=== PATIENT | male | born 1965 | race Caucasian/White ===

== ENCOUNTER 2021-04-04 14:56 | Inpatient (IN) | payer OTHER ==
[2021-04-04] MEDS ORDERED: LOPERAMIDE HCL 2 MG CAPSULE PO PRN (21:26)
[2021-04-04] MEDS ORDERED: guaiFENesin 200 MG/10 ML 10 ML UNIT-DOSE CUPS PO PRN (21:26)
[2021-04-04] MEDS ORDERED: ACETAMINOPHEN 325 MG TABLET (FP) PO PRN (21:26)
[2021-04-04] MEDS ORDERED: MAGNESIUM HYDROX 2400MG/30ML ORAL SUSPENSION 30 ML CUP PO PRN (21:26)
[2021-04-04] MEDS ORDERED: IBUPROFEN 400 MG TABLET (FP) PO PRN (21:26)
[2021-04-04] MEDS ORDERED: MAG HYDROX/AL HYDROX/SIMETH 30 ML UNIT-DOSE CUP PO PRN (21:26)
[2021-04-04] MEDS ORDERED: MAGNESIUM CITRATE 300 ML BOTTLE PO PRN (21:26)
[2021-04-04] MEDS ORDERED: P-EPHED 60MG/TRIPROLIDI 2.5MG TABLET PO PRN (21:26)
[2021-04-04] MEDS: THIAMINE HCL 100 MG TABLET (FP) PO SCH (23:00)
[2021-04-04] MEDS: MELATONIN 5 MG TABLETS PO SCH (23:00)
[2021-04-04] MEDS ORDERED: TUBERCULIN PPD 5 TU/0.1ML VIAL ID ONE (23:02)
[2021-04-05] MEDS ORDERED: methaDONE HCL 10 MG TABLET PO SCH (07:45)
[2021-04-05] MEDS ORDERED: methaDONE 40 MG, methaDONE 20 MG PO ONE (08:00)
[2021-04-05] MEDS ORDERED: methaDONE HCL 40 MG DISPERSABLE TABLET ONE (09:41)
[2021-04-05] MEDS ORDERED: methaDONE HCL 10 MG TABLET ONE (09:41)
[2021-04-05] MEDS: PRENATAL VITAMINS W/ FOLIC ACID TABLET (FP) PO SCH (09:43)
[2021-04-05] MEDS ORDERED: PNEUMOC 13-VAL CONJ-DIP CRM/PF 0.5 ML DISP.SYRIN IM ONE (10:00)
[2021-04-05 10:34] LABS: HEMATOCRIT 39.3 % (35.4-49); HEMOGLOBIN 13.5 GM/dL (11.7-16.9); MCHC 34.3 g/dl (32.0-35.9); MEAN CELL VOLUME 90.4 fl (80-96); MEAN PLT VOLUME 7.5 fl (7.5-11.1); PLATELET COUNT 266 10^3/uL (134-434); RBC 4.35 M/mm3 (4.00-5.60); RDW 14.7 % (11.9-15.9); WHITE BLOOD COUNT 9.4 K/mm3 (4.0-10.0)
[2021-04-05 10:46] LABS: ALBUMIN 2.8 g/dl (3.4-5.0); BLOOD UREA NITROGEN 14.3 mg/dL (7-18); CALCIUM 8.7 mg/dL (8.5-10.1)
[2021-04-05 10:49] LABS: BILIRUBIN,TOTAL 0.3 mg/dL (0.2-1); TOT PROT 6.6 g/dl (6.4-8.2)
[2021-04-05 10:50] LABS: CREATININE 0.8 mg/dL (0.55-1.3)
[2021-04-05] MEDS ORDERED: PNEUMOCOCCAL 23 VACCINE 0.5 ML VIAL IM ONE (12:00)
[2021-04-05 12:21] LABS: HIV INTERPRETATION NEGATIVE (NEGATIVE)
[2021-04-05] MEDS: THIAMINE HCL 100 MG TABLET (FP) PO SCH (21:02)
[2021-04-05] MEDS: MELATONIN 5 MG TABLETS PO SCH (21:02)
[2021-04-06] MEDS ORDERED: methaDONE HCL 10 MG TABLET ONE (05:57)
[2021-04-06] MEDS ORDERED: methaDONE HCL 40 MG DISPERSABLE TABLET ONE (05:57)
[2021-04-06] MEDS: methaDONE 40 MG, methaDONE 20 MG PO SCH (06:18)
[2021-04-06] MEDS: PRENATAL VITAMINS W/ FOLIC ACID TABLET (FP) PO SCH (10:09)
[2021-04-06] MEDS ORDERED: FLU VACC QS2021-22(6MOS UP)/PF 60 MCG/0.5 ML SYRINGE IM ONE (12:00)
[2021-04-06] MEDS: NICOTINE 21 MG/24 HOURS TOPICAL PATCH TD SCH (13:42)
[2021-04-06 13:56] LABS: URINE APPEARANCE CLEAR; URINE BILIRUBIN NEGATIVE (NEGATIVE); URINE COLOR YELLOW; URINE GLUCOSE (UA) NEGATIVE (NEGATIVE); URINE KETONE NEGATIVE (NEGATIVE); URINE LEUK ESTERASE NEGATIVE (NEGATIVE); URINE NITRITE NEGATIVE (NEGATIVE); URINE PROTEIN NEGATIVE (NEGATIVE); URINE UROBILINOGEN 0.2 mg/dL (0.2-1.0)
[2021-04-06] MEDS: THIAMINE HCL 100 MG TABLET (FP) PO SCH (21:01)
[2021-04-06] MEDS: MELATONIN 5 MG TABLETS PO SCH (21:02)
[2021-04-07] MEDS ORDERED: methaDONE HCL 40 MG DISPERSABLE TABLET ONE (03:12)
[2021-04-07] MEDS ORDERED: methaDONE HCL 10 MG TABLET ONE (03:12)
[2021-04-07] MEDS: methaDONE 40 MG, methaDONE 20 MG PO SCH (06:06)
[2021-04-07] MEDS: PRENATAL VITAMINS W/ FOLIC ACID TABLET (FP) PO SCH (09:49)
[2021-04-07] MEDS: NICOTINE 21 MG/24 HOURS TOPICAL PATCH TD SCH (09:49)
[2021-04-07] MEDS ORDERED: JANSSEN COVID-19 VAC,AD26/PF 0.5 ML IM ONE (11:00)
[2021-04-07] MEDS: BACLOFEN 10 MG TABLET (FP) PO SCH ×2 (13:43→21:15)
[2021-04-07] MEDS: SUVOREXANT 5 MG TABLET PO PRN (21:15)
[2021-04-07] MEDS: THIAMINE HCL 100 MG TABLET (FP) PO SCH (21:16)
[2021-04-08] MEDS ORDERED: methaDONE HCL 10 MG TABLET ONE (03:01)
[2021-04-08] MEDS ORDERED: methaDONE HCL 40 MG DISPERSABLE TABLET ONE (03:01)
[2021-04-08] MEDS: methaDONE 40 MG, methaDONE 20 MG PO SCH (06:43)
[2021-04-08] MEDS: BACLOFEN 10 MG TABLET (FP) PO SCH ×3 (06:43→21:32)
[2021-04-08] MEDS: NICOTINE 21 MG/24 HOURS TOPICAL PATCH TD SCH (10:32)
[2021-04-08] MEDS: PRENATAL VITAMINS W/ FOLIC ACID TABLET (FP) PO SCH (10:32)
[2021-04-08] MEDS: hydrOXYzine PAMOATE 25 MG CAPSULE (FP) PO PRN (10:33)
[2021-04-08] MEDS: THIAMINE HCL 100 MG TABLET (FP) PO SCH (21:31)
[2021-04-08] MEDS: SUVOREXANT 5 MG TABLET PO PRN (21:32)
[2021-04-09] MEDS ORDERED: methaDONE HCL 40 MG DISPERSABLE TABLET ONE (03:02)
[2021-04-09] MEDS ORDERED: methaDONE HCL 10 MG TABLET ONE (03:03)
[2021-04-09] MEDS: BACLOFEN 10 MG TABLET (FP) PO SCH ×3 (06:36→21:04)
[2021-04-09] MEDS: methaDONE 40 MG, methaDONE 20 MG PO SCH (06:36)
[2021-04-09] MEDS: NICOTINE 21 MG/24 HOURS TOPICAL PATCH TD SCH (09:01)
[2021-04-09] MEDS: PRENATAL VITAMINS W/ FOLIC ACID TABLET (FP) PO SCH (09:01)
[2021-04-09] MEDS: NICOTINE 10 MG CARTRIDGE (INHALER) IH PRN ×2 (12:13→16:36)
[2021-04-09] MEDS: THIAMINE HCL 100 MG TABLET (FP) PO SCH (21:04)
[2021-04-09] MEDS: SUVOREXANT 5 MG TABLET PO PRN (21:04)
[2021-04-10] MEDS ORDERED: methaDONE HCL 10 MG TABLET ONE (03:15)
[2021-04-10] MEDS ORDERED: methaDONE HCL 40 MG DISPERSABLE TABLET ONE (03:15)
[2021-04-10] MEDS: BACLOFEN 10 MG TABLET (FP) PO SCH ×3 (06:26→21:33)
[2021-04-10] MEDS: methaDONE 40 MG, methaDONE 20 MG PO SCH (06:26)
[2021-04-10] MEDS: NICOTINE 21 MG/24 HOURS TOPICAL PATCH TD SCH (09:54)
[2021-04-10] MEDS: PRENATAL VITAMINS W/ FOLIC ACID TABLET (FP) PO SCH (09:54)
[2021-04-10] MEDS: NICOTINE 10 MG CARTRIDGE (INHALER) IH PRN (09:54)
[2021-04-10] MEDS: THIAMINE HCL 100 MG TABLET (FP) PO SCH (21:34)
[2021-04-10] MEDS: SUVOREXANT 5 MG TABLET PO PRN (21:35)
[2021-04-11] MEDS ORDERED: methaDONE HCL 40 MG DISPERSABLE TABLET ONE (03:29)
[2021-04-11] MEDS ORDERED: methaDONE HCL 10 MG TABLET ONE (03:29)
[2021-04-11] MEDS: methaDONE 40 MG, methaDONE 20 MG PO SCH (06:07)
[2021-04-11] MEDS: BACLOFEN 10 MG TABLET (FP) PO SCH ×3 (06:07→21:26)
[2021-04-11] MEDS: NICOTINE 21 MG/24 HOURS TOPICAL PATCH TD SCH (10:44)
[2021-04-11] MEDS: PRENATAL VITAMINS W/ FOLIC ACID TABLET (FP) PO SCH (10:44)
[2021-04-11] MEDS: NICOTINE 10 MG CARTRIDGE (INHALER) IH PRN (11:09)
[2021-04-11] MEDS: THIAMINE HCL 100 MG TABLET (FP) PO SCH (21:26)
[2021-04-11] MEDS: SUVOREXANT 5 MG TABLET PO PRN (21:28)
[2021-04-11] MEDS: hydrOXYzine PAMOATE 25 MG CAPSULE (FP) PO PRN (21:28)
[2021-04-12] MEDS ORDERED: methaDONE HCL 40 MG DISPERSABLE TABLET ONE (03:10)
[2021-04-12] MEDS ORDERED: methaDONE HCL 10 MG TABLET ONE (03:10)
[2021-04-12] MEDS: methaDONE 40 MG, methaDONE 20 MG PO SCH (06:04)
[2021-04-12] MEDS: BACLOFEN 10 MG TABLET (FP) PO SCH ×3 (06:04→21:05)
[2021-04-12] MEDS: hydrOXYzine PAMOATE 25 MG CAPSULE (FP) PO PRN (06:05)
[2021-04-12] MEDS: NICOTINE 10 MG CARTRIDGE (INHALER) IH PRN (10:20)
[2021-04-12] MEDS: PRENATAL VITAMINS W/ FOLIC ACID TABLET (FP) PO SCH (10:20)
[2021-04-12] MEDS: NICOTINE 21 MG/24 HOURS TOPICAL PATCH TD SCH (10:20)
[2021-04-12] MEDS: THIAMINE HCL 100 MG TABLET (FP) PO SCH (21:04)
[2021-04-12] MEDS: SUVOREXANT 5 MG TABLET PO PRN (21:05)
[2021-04-13] MEDS ORDERED: methaDONE HCL 40 MG DISPERSABLE TABLET ONE (04:05)
[2021-04-13] MEDS ORDERED: methaDONE HCL 10 MG TABLET ONE (04:05)
[2021-04-13] MEDS: methaDONE 40 MG, methaDONE 20 MG PO SCH (06:12)
[2021-04-13] MEDS: BACLOFEN 10 MG TABLET (FP) PO SCH ×3 (06:12→21:29)
[2021-04-13] MEDS: hydrOXYzine PAMOATE 25 MG CAPSULE (FP) PO PRN ×2 (06:13→21:29)
[2021-04-13] MEDS: PRENATAL VITAMINS W/ FOLIC ACID TABLET (FP) PO SCH (09:58)
[2021-04-13] MEDS: NICOTINE 21 MG/24 HOURS TOPICAL PATCH TD SCH (09:58)
[2021-04-13] MEDS: NICOTINE 10 MG CARTRIDGE (INHALER) IH PRN (09:59)
[2021-04-13] MEDS: THIAMINE HCL 100 MG TABLET (FP) PO SCH (21:28)
[2021-04-13] MEDS: SUVOREXANT 5 MG TABLET PO PRN (21:29)
[2021-04-14] MEDS ORDERED: methaDONE HCL 40 MG DISPERSABLE TABLET ONE (02:57)
[2021-04-14] MEDS ORDERED: methaDONE HCL 10 MG TABLET ONE (02:57)
[2021-04-14] MEDS: hydrOXYzine PAMOATE 25 MG CAPSULE (FP) PO PRN ×2 (06:17→21:19)
[2021-04-14] MEDS: BACLOFEN 10 MG TABLET (FP) PO SCH ×3 (06:17→21:18)
[2021-04-14] MEDS: methaDONE 40 MG, methaDONE 20 MG PO SCH (06:17)
[2021-04-14] MEDS: PRENATAL VITAMINS W/ FOLIC ACID TABLET (FP) PO SCH (10:49)
[2021-04-14] MEDS: NICOTINE 21 MG/24 HOURS TOPICAL PATCH TD SCH (10:49)
[2021-04-14] MEDS: THIAMINE HCL 100 MG TABLET (FP) PO SCH (21:18)
[2021-04-14] MEDS: SUVOREXANT 5 MG TABLET PO PRN (21:19)
[2021-04-14] MEDS: NICOTINE 10 MG CARTRIDGE (INHALER) IH PRN (21:28)
[2021-04-15] MEDS ORDERED: methaDONE HCL 40 MG DISPERSABLE TABLET ONE (03:05)
[2021-04-15] MEDS ORDERED: methaDONE HCL 10 MG TABLET ONE (03:05)
[2021-04-15] MEDS: BACLOFEN 10 MG TABLET (FP) PO SCH ×3 (06:28→21:36)
[2021-04-15] MEDS: hydrOXYzine PAMOATE 25 MG CAPSULE (FP) PO PRN ×3 (06:28→21:37)
[2021-04-15] MEDS: methaDONE 40 MG, methaDONE 20 MG PO SCH (06:28)
[2021-04-15] MEDS: PRENATAL VITAMINS W/ FOLIC ACID TABLET (FP) PO SCH (09:44)
[2021-04-15] MEDS: NICOTINE 21 MG/24 HOURS TOPICAL PATCH TD SCH (10:39)
[2021-04-15] MEDS: SUVOREXANT 5 MG TABLET PO PRN (21:35)
[2021-04-15] MEDS: THIAMINE HCL 100 MG TABLET (FP) PO SCH (21:35)
[2021-04-15] MEDS: NICOTINE 10 MG CARTRIDGE (INHALER) IH PRN (21:37)
[2021-04-16] MEDS ORDERED: methaDONE HCL 40 MG DISPERSABLE TABLET ONE (02:46)
[2021-04-16] MEDS ORDERED: methaDONE HCL 10 MG TABLET ONE (02:46)
[2021-04-16] MEDS: BACLOFEN 10 MG TABLET (FP) PO SCH ×3 (06:29→21:16)
[2021-04-16] MEDS: methaDONE 40 MG, methaDONE 20 MG PO SCH (06:29)
[2021-04-16 08:24] VITALS: PULSE 64
[2021-04-16] MEDS: PRENATAL VITAMINS W/ FOLIC ACID TABLET (FP) PO SCH (10:08)
[2021-04-16] MEDS: hydrOXYzine PAMOATE 25 MG CAPSULE (FP) PO PRN (10:08)
[2021-04-16] MEDS: NICOTINE 21 MG/24 HOURS TOPICAL PATCH TD SCH (10:09)
[2021-04-16] MEDS: NICOTINE 10 MG CARTRIDGE (INHALER) IH PRN ×3 (14:21→21:15)
[2021-04-16] MEDS: THIAMINE HCL 100 MG TABLET (FP) PO SCH (21:16)
[2021-04-16] MEDS: SUVOREXANT 5 MG TABLET PO PRN (21:18)
[2021-04-17] MEDS ORDERED: methaDONE HCL 10 MG TABLET ONE (02:59)
[2021-04-17] MEDS ORDERED: methaDONE HCL 40 MG DISPERSABLE TABLET ONE (02:59)
[2021-04-17] MEDS: methaDONE 40 MG, methaDONE 20 MG PO SCH (05:51)
[2021-04-17] MEDS: BACLOFEN 10 MG TABLET (FP) PO SCH (05:51)
[2021-04-17 08:11] VITALS: BP 107/67; TEMP 98.4
== END 2021-04-17 10:22 | disposition home or self-care (01) | DRG 772 ==
LOC: YASAS 14:56 → Y3W 21:13
PROVIDERS: ADMIT Allergy & Immunology; ATTEND Allergy & Immunology
PROC: HZ42ZZZ Group Counseling for Substance Abuse Treatment, Cognitive-Behavioral (ICD-10-PCS; principal; 2021-04-04)
DX: F11.20 Opioid dependence, uncomplicated (principal); F14.20 Cocaine dependence, uncomplicated; F12.20 Cannabis dependence, uncomplicated; F17.210 Nicotine dependence, cigarettes, uncomplicated; F41.9 Anxiety disorder, unspecified; Z86.19 Personal history of other infectious and parasitic diseases; Z98.890 Other specified postprocedural states
CPT/HCPCS: 0031A; 36415; 80053; 81003; 85027; 86593; 86780; 87389; 90686; 90732; 91303; C9803; G0009; J0475; U0003; U0005